=== PATIENT | male | born 1935 | race Caucasian/White ===

== ENCOUNTER 2018-08-07 16:15 | Emergency (ER) | payer MEDICARE, OTHER ==
[~2018-08-07] VITALS: Ht 167.6 cm; Wt 65.8 kg
[2018-08-07 16:15] VITALS: BP 117/75
[2018-08-07] MEDS ORDERED: CRESTOR10 M2 ORAL (16:18)
[2018-08-07] MEDS ORDERED: XARELTO15 MG ORAL (16:18)
[2018-08-07] MEDS ORDERED: TAMSULOSIN HCL0.4 MG ORAL (16:18)
[2018-08-07] MEDS ORDERED: FUROSEMIDE20 M1 ORAL (16:18)
[2018-08-07] MEDS ORDERED: DOCUSATE SODIU100 MG ORAL (16:18)
[2018-08-07] MEDS ORDERED: LEVOTHYROXINE75 MCG ORAL (16:18)
--- NOTE | 2018-08-07 16:18 | NUR ---
ED Nurse Note: Patient biba c/o of a wound on top of his mouth, at time of arrival patient is actively bleeding EMs has put a gauze to stop the bleeding, patient's spouse has stated that it has been bleeding since yesterday morning, patient is a central [place] speaking male and is alert and oriented x4.
[2018-08-07] MEDS ORDERED: Surgicel 4in x 8in TOPIC ONE ×2 (16:45→18:00)
--- NOTE | 2018-08-07 16:47 | NUR ---
ED Nurse Note: Blood sent.
[2018-08-07 16:57] LABS: BASOPHILS % (AUTO) 2.3 % (0.0-2.0); EOSINOPHILS % (AUTO) 1.3 % (0.0-3.0); HEMOGLOBIN 11.3 G/DL (14.2-18.0); LYMPHOCYTES % (AUTO) 29.4 % (20.0-45.0); MEAN CORPUSCULAR VOLUME 88 FL (80-99); MONOCYTES % (AUTO) 17.7 % (1.0-10.0); NEUTROPHILS % (AUTO) 49.3 % (45.0-75.0); PLATELET COUNT 184 K/UL (150-450); RED BLOOD COUNT 3.98 M/UL (4.70-6.10); RED CELL DISTRIBUTION WIDTH 14.3 % (11.6-14.8); WHITE BLOOD COUNT 6.4 K/UL (4.8-10.8)
[2018-08-07 17:04] LABS: INR 1.3 (0.9-1.1)
[2018-08-07 17:08] LABS: ANION GAP 7 mmol/L (5-15); BLOOD UREA NITROGEN 23 mg/dL (7-18); CALCIUM 8.1 MG/DL (8.5-10.1); CARBON DIOXIDE 26 MMOL/L (21-32); CHLORIDE 103 MMOL/L (98-107); CREATININE 1.1 MG/DL (0.55-1.30); POTASSIUM 4.1 MMOL/L (3.5-5.1); SODIUM 136 MMOL/L (136-145)
--- NOTE | 2018-08-07 17:12 | Emergency Room Report ---
History of Present Illness General Chief Complaint: Head, Face, Neck Trauma Source: Family Member, EMS Present Illness HPI Patient is an 83-year-old male brought in by family member after increased bleeding from his mouth. Patient had been anticoagulated with Xarelto. Patient was noted to have onset of bleeding last night. He denies any current symptoms. He denies any facial trauma. Patient had been taking Xarelto due to prior heart surgery. Patient was noted to have prior history of cancer. He is currently undergoing some maintenance medications. Patient had no recent injury other than eating some bread. Patient was noted to have prior history of dental problems but does not currently see a dentist. He denies other locations of bleeding. He denies any severe headache. He does not feel dizzy or lightheaded. 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 Review of Systems All Other Systems: negative except mentioned in HPI Physical Exam Vital Signs Date Time Temp Pulse Resp B/P (MAP) Pulse Ox O2 Delivery O2 Flow Rate FiO2 08/07/18 16:07 96.4 80 16 149/68 97 Room Air Sp02 EP Interpretation: reviewed, normal General Appearance: normal inspection, GCS 15, non-toxic Head: normocephalic, atraumatic ENT: other - bruising to upper lip, loose central incisor upper with small amount of bleeding Neck: normal inspection, supple, no bony tend, limited range of motion Respiratory: normal inspection, lungs clear, normal breath sounds, no respiratory distress, no retraction, no wheezing Cardiovascular #1: regular rate, rhythm, no edema Gastrointestinal: normal inspection, normal bowel sounds, non tender, soft, no guarding, no hernia Genitourinary: no CVA tenderness Musculoskeletal: normal inspection, back normal, decreased range of motion Neurologic: normal inspection, alert, responsive, speech normal Psychiatric: normal inspection, judgement/insight normal, mood/affect normal Medical Decision Making Diagnostic Impression: Primary Impression: Abrasion of gingiva Additional Impression: Contusion of lip ER Course .Patient is an 83-year-old male who presented after increased gingival bleeding. Patient was noted to have prior history of cancer and is currently undergoing chemotherapy. Patient is being anticoagulated with Xarelto. Patient was noted to have some bleeding from the upper gingiva associated with some loosening of the central incisor. Patient's area of bleeding was dressed with Surgicel. Bleeding was subsequently controlled.There is no noted trauma and CT imaging is not indicated at this time. Patient was advised to hold his Xarelto for maximum 1 day. Patient was advised to recheck with his dentist in 1- 2 days. Patient was to return if bleeding recurred or worsened. Labs Test 08/07/18 16:30 White Blood Count 6.4 K/UL (4.8-10.8) Red Blood Count 3.98 M/UL (4.70-6.10) Hemoglobin 11.3 G/DL (14.2-18.0) Hematocrit 35.0 % (42.0-52.0) Mean Corpuscular Volume 88 FL (80-99) Mean Corpuscular Hemoglobin 28.3 PG (27.0-31.0) Mean Corpuscular Hemoglobin Concent 32.2 G/DL (32.0-36.0) Red Cell Distribution Width 14.3 % (11.6-14.8) Platelet Count 184 K/UL (150-450) Mean Platelet Volume 6.2 FL (6.5-10.1) Neutrophils (%) (Auto) 49.3 % (45.0-75.0) Lymphocytes (%) (Auto) 29.4 % (20.0-45.0) Monocytes (%) (Auto) 17.7 % (1.0-10.0) Eosinophils (%) (Auto) 1.3 % (0.0-3.0) Basophils (%) (Auto) 2.3 % (0.0-2.0) Prothrombin Time 13.1 SEC (9.30-11.50) Prothromb Time International Ratio 1.3 (0.9-1.1) Activated Partial Thromboplast Time 40 SEC (23-33) Sodium Level 136 MMOL/L (136-145) Potassium Level 4.1 MMOL/L (3.5-5.1) Chloride Level 103 MMOL/L (98-107) Carbon Dioxide Level 26 MMOL/L (21-32) Anion Gap 7 mmol/L (5-15) Blood Urea Nitrogen 23 mg/dL (7-18) Creatinine 1.1 MG/DL (0.55-1.30) Estimat Glomerular Filtration Rate mL/min (>60) Glucose Level 74 MG/DL (74-106) Calcium Level 8.1 MG/DL (8.5-10.1) Last Vital Signs Date Time Temp Pulse Resp B/P (MAP) Pulse Ox O2 Delivery O2 Flow Rate FiO2 08/07/18 16:07 96.4 80 16 149/68 97 Room Air Status: improved Disposition: HOME, SELF-CARE Condition: Stable Regan Krause MD Aug 07, 2018 17:12
[2018-08-07 17:15] LABS: ALANINE AMINOTRANSFERASE 33 U/L (12-78); ALBUMIN 2.5 G/DL (3.4-5.0); ALBUMIN/GLOBULIN RATIO 0.6 (1.0-2.7); ALKALINE PHOSPHATASE 67 U/L (46-116); ASPARTATE AMINO TRANSFERASE 33 U/L (15-37); BILIRUBIN,TOTAL 0.6 MG/DL (0.2-1.0)
[2018-08-07 18:15] VITALS: BP 120/77
--- NOTE | 2018-08-07 18:15 | NUR ---
ED Nurse Note: Patient is being discharged from ED alert and oriented x4 however was wheelchaired into car. patient's family acknowledged the need to follow up with PMD within a week if symptoms dont improve, ID band and IV line removed
== END 2018-08-07 18:15 | disposition home or self-care (01) ==
LOC: EDBD 16:15 → EMR 17:22
DX: S00.512A Abrasion of oral cavity, initial encounter (principal); S00.531A Contusion of lip, initial encounter; X58.XXXA Exposure to other specified factors, initial encounter; Y92.009 Unspecified place in unspecified non-institutional (private) residence as the place of occurrence of the external cause; K08.89 Other specified disorders of teeth and supporting structures; Z79.02 Long term (current) use of antithrombotics/antiplatelets; C64.9 Malignant neoplasm of unspecified kidney, except renal pelvis; Z95.2 Presence of prosthetic heart valve; Z79.899 Other long term (current) drug therapy
CPT/HCPCS: 36415; 80053; 85025; 85610; 85730; 86850; 86900; 86901; 99283